=== PATIENT | male | born 1935 | race African-American/Black ===

== ENCOUNTER 2021-11-12 16:15 | Inpatient (IN) ==
[2021-11-12 18:11] LABS: Basophils % 0.3 % (0.0-0.8); Eosinophils # 0.2 10*3/uL (0.0-0.87); Eosinophils % 2.9 % (0.00-10.9); Hematocrit 36.2 VOL% (42.0-52.0); Hemoglobin 11.1 GM/DL (14.0-18.0); Immature Granulocytes % 0.6 %; Immature Granulocytes Absolute 0.04 #; Lymphocytes % 28.7 % (21.2-54.2); Mean Corpuscular HGB Conc 30.7 GM/DL (32-36); Mean Platelet Volume 10.3 FL (9.6-12.0); Monocytes % 12.4 % (1.7-12.7); Neutrophils % 55.1 % (38.7-73.9); Platelet Count 180 T/CUMM (130-400); Red Blood Count 3.85 MC/CUMM (3.8-5.5); Red Cell Distribution Width 14.2 % (9.3-17.3); White Blood Count 6.9 T/CUMM (4-12)
[2021-11-12 18:23] LABS: Bilirubin,Urine Negative (Negative); Blood, Urine Negative (Negative); Glucose,Urine (UA) Negative (Negative); Hyaline Casts,Urine 24 /LPF (0-3); Ketones,Urine Negative (Negative); Nitrite,Urine Negative (Negative); Protein,Urine Negative; RBC,Urine 2 /HPF (0-4); Squamous Epithelial Cell,Urine Occasional /HPF (0-10); Urine Appearance CLEAR (Clear); Urine Color Yellow (Yellow); Urine Specific Gravity 1.012 (1.001-1.035); Urine Urobilinogen < 2.0 EU/DL (<2.0)
[2021-11-12 18:41] LABS: Alanine Aminotransferase 16 U/L (16-61); Albumin 3.4 G/DL (3.4-5.0); Alkaline Phosphatase 95 U/L (45-117); Aspartate Amino Transferase 29 U/L (0-37); Bilirubin,Total < 0.39 MG/DL (0.20-1.00); Blood Urea Nitrogen 41 MG/DL (7-18); Calcium 10.4 MG/DL (8.5-10.1); Carbon Dioxide 29 MMOL/L (21-32); Estimated Glom Filtration Rate 10 ML/MIN; Glucose 101 MG/DL (74-106); Osmolality,Calculated 284.7 MOS/KG (273-304); Sodium 138 MMOL/L (136-145); Total Protein 7.7 G/DL (6.4-8.2)
[2021-11-12 18:45] LABS: Potassium 7.3 MMOL/L (3.5-5.1)
[2021-11-12] MEDS ORDERED: ALBUTEROL 2.5 MG/3 ML NEB RESP TX STA ×2 (19:25→22:03)
[2021-11-12] MEDS ORDERED: CALCIUM GLUCONATE 1,000 MG in SODIUM CHLORIDE 0.9% 100 ML IV ONE (19:25)
[2021-11-12] MEDS ORDERED: SODIUM POLYSTYRENE SULFATE 15 GM/60 ML BOTTLE PO STA (19:25)
[2021-11-12] MEDS ORDERED: INSULIN REGULAR 100 UNIT/ML IV STA (19:26)
[2021-11-12] MEDS ORDERED: DEXTROSE 50% 25 GM/50 ML VIAL IV STA (19:26)
[2021-11-12] MEDS ORDERED: DEXTROSE 50% 25 GM/50 ML SYRINGE IV STA (19:41)
[2021-11-12 19:45] LABS: INR 1.1; PT Patient Result 12.3 SECS (10.5-12.0); Partial Thromboplastin Time 22.3 SECS (23.8-32.1)
[2021-11-12] MEDS ORDERED: SODIUM POLYSTYRENE SULFATE 15 GM/60 ML BOTTLE PO ONE (22:01)
[2021-11-12] MEDS ORDERED: DEXTROSE 50% 25 GM/50 ML SYRINGE IV ONE (22:01)
[2021-11-12] MEDS ORDERED: INSULIN REGULAR 100 UNIT/ML IV ONE (22:02)
[2021-11-12] MEDS ORDERED: GLUCAGON 1 MG VIAL IM PRN (23:37)
[2021-11-12] MEDS ORDERED: NICOTINE 21 MG/24 HR PATCH TRANSDERM PRN (23:37)
[2021-11-12] MEDS ORDERED: ZALEPLON 5 MG CAPSULE PO PRN (23:37)
[2021-11-12] MEDS ORDERED: diphenhydrAMINE CAP 25 MG CAPSULE PO PRN (23:37)
[2021-11-12] MEDS ORDERED: guaiFENesin/DM ER 600-30 MG TABLET PO PRN (23:37)
[2021-11-12] MEDS ORDERED: DEXTROSE 50% 25 GM/50 ML SYRINGE IV PRN (23:37)
[2021-11-12] MEDS ORDERED: ACETAMINOPHEN 325 MG TABLET PO PRN (23:37)
[2021-11-12] MEDS ORDERED: hydrALAZINE 20 MG/1 ML VIAL IV PRN (23:37)
[2021-11-12] MEDS ORDERED: DOCUSATE SODIUM 100 MG CAPSULE PO PRN (23:37)
[2021-11-13] MEDS: SODIUM CHLORIDE 0.9% 1,000 ML IV SCH ×2 (00:02→14:13)
[2021-11-13 05:53] LABS: Basophils % 0.3 % (0.0-0.8); Eosinophils # 0.2 10*3/uL (0.0-0.87); Eosinophils % 2.8 % (0.00-10.9); Hematocrit 32.3 VOL% (42.0-52.0); Immature Granulocytes % 0.3 %; Immature Granulocytes Absolute 0.02 #; Lymphocytes # 1.9 10*3/uL (1.4-4.0); Lymphocytes % 30.1 % (21.2-54.2); Mean Corpuscular Volume 94.4 FL (87-102); Mean Platelet Volume 10.6 FL (9.6-12.0); Monocytes % 10.5 % (1.7-12.7); Platelet Count 160 T/CUMM (130-400); Red Blood Count 3.42 MC/CUMM (3.8-5.5); Red Cell Distribution Width 14.3 % (9.3-17.3); White Blood Count 6.2 T/CUMM (4-12)
[2021-11-13 06:12] LABS: Potassium 5.1 MMOL/L (3.5-5.1)
[2021-11-13] MEDS ORDERED: SODIUM POLYSTYRENE SULFATE 15 GM/60 ML BOTTLE PO ONE (06:38)
[2021-11-13] MEDS ORDERED: CALCIUM GLUCONATE 1,000 MG in SODIUM CHLORIDE 0.9% 100 ML IV ONE (06:40)
[2021-11-13] MEDS: AMIODARONE 200 MG TABLET PO SCH (08:44)
[2021-11-13] MEDS: HEPARIN 5,000 UNIT/1 ML VIAL SUBCUT SCH ×2 (08:45→21:33)
[2021-11-13] MEDS: DOCUSATE SODIUM 100 MG CAPSULE PO SCH (14:12)
[2021-11-14] MEDS: POLYETHYLENE GLYCOL POWDER 17 GM PACK PO SCH ×3 (02:25→21:36)
[2021-11-14] MEDS: DOCUSATE SODIUM 100 MG CAPSULE PO SCH ×3 (02:25→21:36)
[2021-11-14] MEDS: SODIUM CHLORIDE 0.9% 1,000 ML IV SCH ×2 (04:30→17:01)
[2021-11-14 05:13] LABS: Basophils % 0.2 % (0.0-0.8); Eosinophils # 0.2 10*3/uL (0.0-0.87); Eosinophils % 3.5 % (0.00-10.9); Hematocrit 31.4 VOL% (42.0-52.0); Hemoglobin 9.8 GM/DL (14.0-18.0); Immature Granulocytes % 0.2 %; Immature Granulocytes Absolute 0.01 #; Lymphocytes # 2.1 10*3/uL (1.4-4.0); Lymphocytes % 46.3 % (21.2-54.2); Mean Corpuscular HGB Conc 31.2 GM/DL (32-36); Mean Corpuscular Volume 93.5 FL (87-102); Mean Platelet Volume 10.4 FL (9.6-12.0); Monocytes % 13.4 % (1.7-12.7); Neutrophils % 36.4 % (38.7-73.9); Platelet Count 163 T/CUMM (130-400); Red Blood Count 3.36 MC/CUMM (3.8-5.5); Red Cell Distribution Width 14.2 % (9.3-17.3); White Blood Count 4.6 T/CUMM (4-12)
[2021-11-14 05:24] LABS: Calcium 9.5 MG/DL (8.5-10.1); Osmolality,Calculated 293.7 MOS/KG (273-304); Potassium 3.6 MMOL/L (3.5-5.1)
[2021-11-14 05:26] LABS: Parathyroid Hormone Intact 248.1 PG/ML (18.4-80.1)
[2021-11-14 06:01] LABS: Eosinophils 5 % (0-10); Hypochromia 1+; Lymphocytes 42 % (20-55); Segmented Neutrophils 45 % (50-85); Total Cells Counted 100
[2021-11-14 06:02] LABS: Microcytosis Slight; Platelet Estimate Adequate
[2021-11-14] MEDS: AMIODARONE 200 MG TABLET PO SCH (10:25)
[2021-11-14] MEDS: HEPARIN 5,000 UNIT/1 ML VIAL SUBCUT SCH ×2 (10:25→21:36)
[2021-11-14 18:10] LABS: Total Volume,Urine 1300 ML (400-2000)
[2021-11-14 19:18] LABS: Total Protein 24 Hr Ur Result 286 MG/24HR (0-149.1)
[2021-11-14] MEDS: TAMSULOSIN 0.4 MG CAPSULE PO SCH (21:36)
[2021-11-15] MEDS: SODIUM CHLORIDE 0.9% 1,000 ML IV SCH ×2 (03:55→18:24)
[2021-11-15 07:17] LABS: 24 Hr Protein (Bench) 286 MG/24HR (0-149.1)
[2021-11-15 07:17] LABS: Immunoglobulin A (Chem) 248 MG/DL (70-400); Immunoglobulin G (Chem) 1260 MG/DL (700-1600); Immunoglobulin M (Chem) 22 MG/DL (40-230)
[2021-11-15 07:22] LABS: Basophils % 0.5 % (0.0-0.8); Eosinophils # 0.2 10*3/uL (0.0-0.87); Eosinophils % 4.2 % (0.00-10.9); Hematocrit 30.5 VOL% (42.0-52.0); Hemoglobin 9.7 GM/DL (14.0-18.0); Immature Granulocytes % 0.2 %; Immature Granulocytes Absolute 0.01 #; Lymphocytes # 2.1 10*3/uL (1.4-4.0); Lymphocytes % 51.9 % (21.2-54.2); Mean Corpuscular HGB Conc 31.8 GM/DL (32-36); Mean Corpuscular Volume 92.4 FL (87-102); Mean Platelet Volume 9.9 FL (9.6-12.0); Monocytes % 13.7 % (1.7-12.7); Neutrophils % 29.5 % (38.7-73.9); Platelet Count 151 T/CUMM (130-400); Red Cell Distribution Width 13.7 % (9.3-17.3)
[2021-11-15 07:41] LABS: Calcium 9.6 MG/DL (8.5-10.1); Osmolality,Calculated 282.3 MOS/KG (273-304); Potassium 3.8 MMOL/L (3.5-5.1)
[2021-11-15 07:42] LABS: Eosinophils 7 % (0-10); Lymphocytes 51 % (20-55); Platelet Estimate Adequate; Segmented Neutrophils 33 % (50-85); Total Cells Counted 100
[2021-11-15 07:43] LABS: Hypochromia 1+; Microcytosis 1+
[2021-11-15 08:13] LABS: Calcium 9.3 MG/DL (8.5-10.1); Osmolality,Calculated 282.3 MOS/KG (273-304); Potassium 4.2 MMOL/L (3.5-5.1)
[2021-11-15 08:45] LABS: Albumin (SPE) 3.2 G/DL (3.2-5.3); Albumin (SPE) Rel % 53.2 %; Alpha 1 (SPE) 0.2 G/DL (0.1-0.4); Alpha 1 (SPE) Rel % 2.5 %; Alpha 2 (SPE) 0.9 G/DL (0.4-1.0); Alpha 2 (SPE) Rel % 15.4 %; Beta (SPE) 0.7 G/DL (0.5-1.1); Beta (SPE) Rel % 11.2 %; Gamma (SPE) 1.1 G/DL (0.7-1.7)
[2021-11-15] MEDS: AMIODARONE 200 MG TABLET PO SCH (09:36)
[2021-11-15 09:37] LABS: Gamma (SPE) Rel % 17.7 %
[2021-11-15] MEDS: HEPARIN 5,000 UNIT/1 ML VIAL SUBCUT SCH ×2 (09:38→20:23)
[2021-11-15] MEDS: POLYETHYLENE GLYCOL POWDER 17 GM PACK PO SCH ×2 (10:05→20:23)
[2021-11-15] MEDS: DOCUSATE SODIUM 100 MG CAPSULE PO SCH ×2 (10:05→20:22)
[2021-11-15] MEDS ORDERED: MAGNESIUM HYDROXIDE SUSP 30 ML UDCUP PO ONE (13:23)
[2021-11-15] MEDS: TAMSULOSIN 0.4 MG CAPSULE PO SCH (20:22)
[2021-11-16] MEDS: SODIUM CHLORIDE 0.9% 1,000 ML IV SCH ×2 (04:50→10:13)
[2021-11-16 07:10] LABS: Basophils % 0.3 % (0.0-0.8); Eosinophils # 0.1 10*3/uL (0.0-0.87); Hemoglobin 9.7 GM/DL (14.0-18.0); Immature Granulocytes % 0.3 %; Immature Granulocytes Absolute 0.01 #; Lymphocytes # 1.5 10*3/uL (1.4-4.0); Lymphocytes % 40.5 % (21.2-54.2); Mean Corpuscular HGB Conc 32.3 GM/DL (32-36); Mean Corpuscular Volume 90.6 FL (87-102); Mean Platelet Volume 9.7 FL (9.6-12.0); Neutrophils % 41.9 % (38.7-73.9); Platelet Count 144 T/CUMM (130-400); Red Blood Count 3.31 MC/CUMM (3.8-5.5); Red Cell Distribution Width 13.3 % (9.3-17.3); White Blood Count 3.6 T/CUMM (4-12)
[2021-11-16 07:30] LABS: Calcium 9.4 MG/DL (8.5-10.1); Osmolality,Calculated 274.7 MOS/KG (273-304); Potassium 3.5 MMOL/L (3.5-5.1)
[2021-11-16 07:35] LABS: Anisocytosis 1+; Band Neutrophils 2 % (0-10); Eosinophils 3 % (0-10); Lymphocytes 32 % (20-55); Macrocytosis Slight; Platelet Estimate Adequate; Segmented Neutrophils 51 % (50-85); Smudge Cells Few; Total Cells Counted 100
[2021-11-16] MEDS: DOCUSATE SODIUM 100 MG CAPSULE PO SCH ×2 (08:53→20:23)
[2021-11-16] MEDS: AMIODARONE 200 MG TABLET PO SCH (08:53)
[2021-11-16] MEDS: HEPARIN 5,000 UNIT/1 ML VIAL SUBCUT SCH ×2 (08:53→20:23)
[2021-11-16] MEDS: POLYETHYLENE GLYCOL POWDER 17 GM PACK PO SCH ×2 (08:53→21:25)
[2021-11-16] MEDS ORDERED: MAGNESIUM HYDROXIDE SUSP 30 ML UDCUP PO ONE (12:48)
[2021-11-16] MEDS ORDERED: LACTULOSE 20 GM/30 ML UDCUP PO ONE (15:20)
[2021-11-16] MEDS: TAMSULOSIN 0.4 MG CAPSULE PO SCH (20:23)
[2021-11-16] MEDS ORDERED: POLYETHYLENE GLYCOL POWDER 17 GM PACK PO SCH (21:00)
[2021-11-16] MEDS ORDERED: LUBIPROSTONE 24 MCG CAPSULE PO SCH (21:00)
[2021-11-17 01:29] LABS: Basophils % 0.3 % (0.0-0.8); Eosinophils # 0.1 10*3/uL (0.0-0.87); Eosinophils % 2.8 % (0.00-10.9); Hematocrit 30.1 VOL% (42.0-52.0); Hemoglobin 9.7 GM/DL (14.0-18.0); Immature Granulocytes % 0.3 %; Immature Granulocytes Absolute 0.01 #; Lymphocytes # 1.7 10*3/uL (1.4-4.0); Lymphocytes % 47.6 % (21.2-54.2); Mean Corpuscular HGB Conc 32.2 GM/DL (32-36); Mean Corpuscular Volume 89.9 FL (87-102); Mean Platelet Volume 9.9 FL (9.6-12.0); Monocytes % 15.1 % (1.7-12.7); Neutrophils % 33.9 % (38.7-73.9); Platelet Count 144 T/CUMM (130-400); Red Blood Count 3.35 MC/CUMM (3.8-5.5); Red Cell Distribution Width 13.3 % (9.3-17.3); White Blood Count 3.6 T/CUMM (4-12)
[2021-11-17 01:54] LABS: Calcium 9.1 MG/DL (8.5-10.1); Osmolality,Calculated 273.7 MOS/KG (273-304); Potassium 3.3 MMOL/L (3.5-5.1)
[2021-11-17 02:26] LABS: Eosinophils 6 % (0-10); Hypochromia Slight; Lymphocytes 42 % (20-55); Platelet Estimate Normal; Segmented Neutrophils 42 % (50-85); Total Cells Counted 100
[2021-11-17] MEDS ORDERED: LINACLOTIDE 145 MCG CAPSULE PO SCH (07:30)
[2021-11-17] MEDS: HEPARIN 5,000 UNIT/1 ML VIAL SUBCUT SCH (08:24)
[2021-11-17] MEDS: POLYETHYLENE GLYCOL POWDER 17 GM PACK PO SCH (08:24)
[2021-11-17] MEDS: AMIODARONE 200 MG TABLET PO SCH (08:24)
[2021-11-17] MEDS: DOCUSATE SODIUM 100 MG CAPSULE PO SCH (08:24)
[2021-11-17 12:17] VITALS: BP 133/65
[2021-11-17] MEDS ORDERED: POTASSIUM CHLORIDE 10 MEQ TABLET PO ONE (13:15)
[2021-11-17 14:11] LABS: Kappa Free Light Chain 9.52 mg/dL; Lambda Free Light Chain 3.15 mg/dL
[2021-11-18 21:56] LABS: Fr Urinary Kappa Excretion/24h 173.78 mg/d; Fr Urinary Lambda Excret/24h 12.28 mg/d; Fr Urinary Lambda Light Chain 9.45 mg/L (0.00-3.79); Free Urinary Kappa Light Chain 133.68 mg/L (0.00-32.90); IF FLC Collection Duration 24 hr; IF FLC Collection Volume 1300 mL
== END 2021-11-17 14:51 | disposition home or self-care (01) | DRG 683 ==
LOC: N.ED 16:15 → N.EDINP 23:37 → N.TELEN 11-13 00:24
PROVIDERS: ADMIT Hospitalist; ATTEND Hospitalist